=== PATIENT | female | born 1960 | race Caucasian/White ===

== ENCOUNTER 2020-02-09 21:48 | Emergency (ER) | payer SELFPAY ==
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
[2020-02-09 22:35] LABS: ACETAMINOPHEN 2.6 ug/mL
[2020-02-09 22:39] LABS: BLOOD UREA NITROGEN,BUN 11 mg/dL (7.0-18.0); CARBON DIOXIDE,CO2 24.5 mmol/L (21.0-32.0); CHLORIDE,CL 105 mmol/L (98-107); GLUCOSE RANDOM 92 mg/dL (74-106); POTASSIUM,K 3.6 mmol/L (3.5-5.1); SODIUM,NA 140 mmol/L (136-145)
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
== END 2020-02-10 05:14 | disposition home or self-care (01) ==
LOC: MW.ED 21:48
DX: Z04.3 Encounter for examination and observation following other accident (principal)
CPT/HCPCS: 36415; 70450; 70450-26; 80053; 80305-QW; 80307; 82550; 83735; 85025; 93005; 93010; 99282; 99285-25